=== PATIENT | female | born 1940 | race Caucasian/White ===

== ENCOUNTER 2016-10-29 10:26 | Inpatient (IN) | payer MEDICARE ==
--- NOTE | 2016-10-26 21:27 | HP ---
HISTORY AND PHYSICAL: DATE OF VISIT: 10/26/16 DATE OF SURGERY: 10/29/16 SURGEON: Rubina France MD PROCEDURE: Right total knee arthroplasty. CHIEF COMPLAINT: Right knee pain. HISTORY OF PRESENT ILLNESS: Ms. Childs is a 76-year-old female with complaints of right knee pain secondary to advanced osteoarthritis. She has failed conservative management and has elected to proceed with the right total knee arthroplasty, which is scheduled for 10/29/[address] France. PAST MEDICAL HISTORY: Hypothyroidism and osteoarthritis. PAST SURGICAL HISTORY: Tubal ligation, appendectomy, hernia repair, right ankle ORIF, and right knee arthroscopy. CURRENT MEDICATIONS: 1. Triamterene/hydrochlorothiazide. 2. Levothyroxine. 3. Raloxifene. ALLERGIES: No known drug allergies. FAMILY HISTORY: Colon cancer. SOCIAL HISTORY: She is a 76-year-old female. She lives alone. She does not smoke or use drugs. She uses occasional alcohol. REVIEW OF SYSTEMS: A complete 14-point review of systems was reviewed with the patient. All is negative. PHYSICAL EXAMINATION GENERAL: She is well-developed, well-nourished. She is in no acute distress. VITAL SIGNS: She stands 5 feet 2 inches tall, weighs 148 pounds. Her blood pressure 140/90. Her heart rate is 85. HEENT: Normocephalic, atraumatic. NECK: Supple. No palpable lymph nodes. Trachea is midline. PULMONARY: Lungs are clear to auscultation bilaterally. CARDIO: Regular rate and rhythm. Strong S1 and S2. ABDOMEN: Soft, nontender, and nondistended. MUSCULOSKELETAL: Right lower extremity, the skin is intact. She has tenderness over the medial and lateral joint line. Her lower extremity muscle group strengths are intact at 5/5. She has 2+ dorsalis pedis pulses, but she walks with a slightly antalgic type gait favoring the right leg. NEUROLOGICAL: She is alert and oriented x3. ASSESSMENT AND PLAN: Ms. Childs is a 76-year-old female with complaints of right knee pain secondary to advanced osteoarthritis. She has failed conservative management and has elected to proceed with the right total knee arthroplasty. The surgery is scheduled for 10/29/[address] France discussed the risks and benefits of the surgery at today's visit and all of her questions were answered. Percocet, Colace, and Coumadin were sent to her pharmacy today for postoperative pain control and DVT prophylaxis. She will see Dr. France in 10 to 14 days after the surgery. JUDD KARIMI [id number]/[facility] #: [id number] MTDEnid
[~2016-10-29 10:26] MED LIST: Buffered Lidocaine 1% SYRIN* 3 ML/SYR SYRINGE INTRADERM ONE; Bupivacaine 0.5% SDV PF* 30 ML VIAL ONE; Dexamethasone IV* 4 MG/ML 1 ML (4 MG) IV SLOW PU ONE; Dexmedetomidine* 200 MCG/2 ML 2 ML VIAL ONE; Famotidine IV* 10 MG/ML 2 ML (20 mg) IV ONE; HYDROmorphone* 1 MG/ML 1 ML SYR ONE; Midazolam* 1 MG/ML 2 ML VIAL (2 MG) ONE; Morphine PF AMP (0.5MG/ML)* 5 MG/10 ML AMP ONE; Propofol* 10 MG/ML 20 ML BTL IV PUSH ONE; fentaNYL* 50 MCG/ML 2 ML VIAL (100 MCG VIAL) ONE
[2016-10-29] MEDS ORDERED: Dexamethasone IV* 4 MG/ML 1 ML (4 MG) ONE (10:44)
[2016-10-29] MEDS ORDERED: Famotidine IV* 10 MG/ML 2 ML (20 mg) ONE (10:44)
[2016-10-29] MEDS ORDERED: ceFAZolin 2 GM PREMIX(*) 2 GM/50 ML BAG IVPB ONE (10:44)
[2016-10-29] MEDS ORDERED: Meperidine SYRINGE* 50 MG/ML ONE (11:30)
[2016-10-29] MEDS ORDERED: fentaNYL* 50 MCG/ML 2 ML VIAL (100 MCG VIAL) ONE ×3 (11:40→15:45)
[2016-10-29] MEDS ORDERED: HYDROmorphone* 1 MG/ML 1 ML SYR ONE ×3 (14:02→15:44)
[2016-10-29] MEDS ORDERED: diPHENhydraMINE IV* 50 MG/ML 1 ml VIAL (BENADRYL) IV PRN ×2 (16:03→16:04)
[2016-10-29] MEDS ORDERED: Acetaminophen TAB* 325 MG PO PRN (16:03)
[2016-10-29] MEDS ORDERED: PROCHLORPERAZINE INJ 5 MG/ML 2 ML VIAL IV PRN ×2 (16:04)
[2016-10-29] MEDS ORDERED: Ondansetron INJ* 2 MG/ML VIAL IV PRN ×2 (16:04)
[2016-10-29] MEDS ORDERED: oxyCODONE/Acetamin 5/325 MG* TAB PO PRN (16:04)
[2016-10-29] MEDS ORDERED: DiMENhydriNATE IV* 50 MG/ML VIAL IV PUSH PRN ×2 (16:04)
[2016-10-29] MEDS ORDERED: HYDROmorphone* 1 MG/ML 1 ML SYR IV PRN (16:04)
[2016-10-29] MEDS ORDERED: fentaNYL* 50 MCG/ML 2 ML VIAL (100 MCG VIAL) IV PRN (16:04)
[2016-10-29] MEDS ORDERED: Naloxone* 0.4 MG/ML 1 ML VIAL IV PRN (16:04)
[2016-10-29] MEDS ORDERED: Nalbuphine* 20 MG/ML 1 ML VIAL IV PRN (16:04)
[2016-10-29] MEDS ORDERED: Ondansetron INJ* 2 MG/ML VIAL ONE (16:29)
[2016-10-29] MEDS ORDERED: DiMENhydriNATE IV* 50 MG/ML VIAL ONE (16:30)
[2016-10-29] MEDS ORDERED: PROCHLORPERAZINE INJ 5 MG/ML 2 ML VIAL ONE (16:58)
[2016-10-29] MEDS ORDERED: Bisacodyl SUPP* 10 MG SUPP PR PRN (17:33)
[2016-10-29] MEDS ORDERED: Polyethylene Glycol 3350* 17 GM PACKET PO PRN (17:35)
[2016-10-29] MEDS ORDERED: Warfarin TAB(*) 6 MG PO ONE (18:00)
--- NOTE | 2016-10-29 18:09 | RAD ---
INDICATION: Status post right knee arthroplasty. COMPARISON: Preoperative x-ray dated October 02, 2016 TECHNIQUE: 2 view radiograph of the right knee. FINDINGS: There is been interval placement of a right knee prosthesis in anatomic alignment. Expected postoperative findings are noted. IMPRESSION: Anatomic alignment of recently placed right knee prosthesis.
--- NOTE | 2016-10-29 20:40 | CONS ---
HOSPITAL MEDICINE CONSULTATION REPORT: DATE OF CONSULT: 10/29/16 ATTENDING PHYSICIAN: Dr. Rubina France. CONSULTING PHYSICIAN: Dr. Rima Valenzuela (dictation provided by Lucy Dotson NP) . REASON FOR CONSULT: Medical co-management in a patient admitted for right total knee arthroplasty. HISTORY OF PRESENT ILLNESS: Ms. Childs is a 76-year-old female with a past medical history of hypothyroidism, hypertension, and osteoarthritis, who presented to the hospital today for an elective right total knee arthroplasty. Please see the dictated H and P from Dr. France for completed details. In brief , the patient had ongoing pain to the right knee and failed conservative measures and opted for surgical intervention today. Ms. Childs states that she was feeling in her normal state of health prior to coming in for surgery. She has had no complaints. She says her blood pressure is well controlled on her current regimen. She has had no recent illnesses. PAST MEDICAL HISTORY: 1. Hypertension. 2. Hypothyroidism. 3. Osteoarthritis. PAST SURGICAL HISTORY: 1. Tubal ligation. 2. Appendectomy. 3. Hernia repair. 4. Right ankle ORIF. 5. Right knee arthroscopy. MEDICATIONS: 1. AREDS 2 cap p.o. daily. 2. Biotin 1 cap p.o. daily. 3. Calcium carbonate with cholecalciferol 1 tab p.o. daily. 4. Evista 60 mg p.o. q.a.m. 5. Folic acid 1 mg p.o. q.a.m. 6. Multivitamin with mineral 1 tab p.o. q.a.m. 7. Naproxen 500 mg p.o. b.i.d. 8. Turmeric 1 tab p.o. q.a.m. 9. Tramadol 50 mg p.o. q.6 hours p.r.n. 10. Synthroid 50 mcg p.o. q.a.m. 11. Triamterene/hydrochlorothiazide 37.5/25 one cap p.o. daily. ALLERGIES: No known drug allergies. FAMILY HISTORY: The patient reports her mother and father both related to colon cancer. SOCIAL HISTORY: No report of tobacco or drug use. The patient does drink occasionally, but she states never to excess. She reports that her daughter would be her healthcare proxy; daughter's name is Jessica. REVIEW OF SYSTEMS: A 14-point review of systems completed with Ms. Childs and all those not mentioned above were negative. PHYSICAL EXAM: Vital Signs: Temperature 96.6, pulse rate 82, respiratory rate 16, O2 saturation 95% on 3 L nasal cannula, blood pressure 101/59. General: Ms. Childs is sitting in the bed. She is in no acute distress. Neuro: She is alert, she is oriented x3. She moves all extremities equally. There is no facial asymmetry or focal weakness. Extra-ocular movements are intact. Heart: S1, S2. No murmur, rub, or gallop, and regular. Lungs are clear to auscultation bilaterally with no accessory muscle use and good aeration. The abdomen is soft, nontender with bowel sounds positive x4. Extremities: No cyanosis or edema. Skin is intact. LABORATORY DATA: On 10/26/16, WBC is 7.6, hemoglobin 13.8, hematocrit 41, platelet count 190. Sodium 139, potassium 3.8, chloride 100, serum bicarbonate 30, BUN 23, creatinine 1.03, glucose 98. ASSESSMENT AND PLAN: Ms. Childs is a 76-year-old female with a past medical history of hypertension and hypothyroidism, who presents to the hospital today with plans for an elective right total knee arthroplasty. The recommendations are as follows: 1. Postop day #0 status post right total knee arthroplasty: Management will be per for orthopedic services. The patient will have pain medications p.r.n. with the bowel regimen. She will have physical and occupational therapy. We will monitor her H and H closely. 2. Hypertension. Plan to hold triamterene/hydrochlorothiazide in the immediate perioperative period. The patient's blood pressure is 101/59. We can reevaluate in the a.m. and resume that as indicated. 3. Hypothyroidism. Continue levothyroxine. 4. DVT prophylaxis. With enoxaparin and warfarin per Ortho. 5. Code status is full code. 6. Disposition per Ortho. TIME SPENT: Approximately 60 minutes was spent in the admission of this patient , more than half the time was spent with the patient at bedside reviewing the events leading up to this hospitalization, performing the physical examination, and reviewing my plan [place] [id number]/[facility] #: [id number] ADAL
[2016-10-29] MEDS: Docusate CAP* 100 MG PO SCH (22:08)
[2016-10-29] MEDS: ceFAZolin 1 GM in Dextrose (*) 1 GM/50 ML BAG IVPB SCH (22:11)
[2016-10-30] MEDS ORDERED: Morphine INJ* 2 MG/ML 1 ML SYRINGE IV PRN (05:35)
[2016-10-30] MEDS ORDERED: oxyCODONE TAB* 5 MG TAB PO PRN (05:35)
[2016-10-30] MEDS: oxyCODONE/Acetamin 5/325 MG* TAB PO PRN ×3 (05:52→20:53)
[2016-10-30] MEDS: Levothyroxine TAB* 50 MCG TAB PO SCH (05:52)
[2016-10-30] MEDS: ceFAZolin 1 GM in Dextrose (*) 1 GM/50 ML BAG IVPB SCH ×2 (05:53→14:23)
[2016-10-30 06:59] LABS: Hematocrit 33 % (35-47); Hemoglobin 10.9 g/dl (12.0-16.0)
[2016-10-30 07:11] LABS: BUN/Creatinine Ratio 20.2 (8-20); Calcium 8.8 mg/dL (8.6-10.3); EGFR African American 79.1 (>60); EGFR Non-African American 61.5 (>60); Potassium 4.2 mmol/L (3.5-5.0)
[2016-10-30] MEDS: Docusate CAP* 100 MG PO SCH ×2 (08:37→20:54)
[2016-10-30] MEDS ORDERED: HYDROmorphone* 1 MG/ML 1 ML SYR ONE (08:47)
[2016-10-30] MEDS ORDERED: Meperidine SYRINGE* 50 MG/ML ONE (08:47)
[2016-10-30] MEDS ORDERED: fentaNYL* 50 MCG/ML 2 ML VIAL (100 MCG VIAL) ONE (08:47)
[2016-10-30] MEDS ORDERED: Triamterene/HCTZ 37.5-25 MG* CAP PO SCH (09:00)
--- NOTE | 2016-10-30 09:07 | OP ---
DATE OF OPERATION: 10/29/16 - ROOM #333 DATE OF : 38 SURGEON: Rubina France MD DIGITAL ASSET COORDINATOR: JUDD Umanzor. This commercial escrow assistant was present throughout the entire procedure and did help with prepping, draping, manipulation of the leg, retraction, wound closure, and all portions of the procedure. ANESTHESIOLOGIST: Gael Hammond MD ANESTHESIA: Spinal with adductor nerve block. PRE-OP DIAGNOSIS: Severe end-stage degenerative osteoarthritis of the right knee joint with valgus deformity. POST-OP DIAGNOSES: 1. Severe end-stage degenerative osteoarthritis of the right knee joint with valgus deformity. 2. Severe osteopenia. OPERATIVE PROCEDURE: Right total knee arthroplasty. COMPLICATIONS: None. ESTIMATED BLOOD LOSS: 200 cc. SPECIMEN: Bone and cartilage from the right knee joint, sent to pathology. TOURNIQUET TIME: 56 minutes. HARDWARE USED: This is a cemented [employer] total knee hardware. Two packages of Simplex bone and cement. For the femur, a size 5 right narrow Legion femoral component. For the tibia, a size 3 Gayle II right tibial base plate. For the insert, a 9 mm constrained articular insert size 3-4. For the patella, a 29 mm 7.5 thickness 3-peg all-poly patella. BRIEF HISTORY/INDICATIONS: Ms. Childs is a 76-year-old female with years of increasingly severe right knee pain and valgus deformity. She failed conservative treatment with the antiinflammatories, pain medications, intraarticular injections, and physical therapy. Radiographs showed bone-on- bone contact and severe arthritis. She did have a 12-degree valgus deformity at the knee. Due to continued pain and decreased quality of life, she elected to undergo right total knee arthroplasty. Informed consent was obtained from the patient. She understood the risk of the surgery included, but were not limited to bleeding, infection, damage to nearby structures, continued pain, need for further surgery, intraoperative fracture, nerve palsy, hardware failure or loosening, knee stiffness, loss of motion, stroke, heart attack, blood clot, and . She wished to proceed. 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 She had complete loss of cartilage in the lateral patellofemoral compartments. She did have preop 12-degree valgus deformity corrected to anatomic 3-5 degrees by the end of the case. Throughout the procedure, she was noted to have extreme osteopenia. DESCRIPTION OF PROCEDURE: Ms. Childs was identified in the preanesthesia unit. The right lower extremity was marked as the correct operative side. Informed consent was signed and placed in the chart. The patient was taken to the operating room and placed under spinal anesthesia with an adductor nerve block. A Figueroa catheter was placed. The tourniquet was placed on the right thigh. Right lower extremity was prepped and draped in the usual sterile fashion. A preop time-out was made to correctly identify the patient's side and site. Appropriate perioperative antibiotics were given within 1 hour of incision. Tourniquet was inflated until the tourniquet time for his procedure was 56 minutes. A 12 cm midline incision was made with a 10-blade and carried down to the extensor mechanism. Next a new 10 blade was used to make a standard medial peripatellar arthrotomy. The patella was subluxed laterally. Electrocautery was used to subperiosteally elevate soft tissue off the superomedial tibia to the mid sagittal plane. The knee was flexed up. Anterior horn of the lateral meniscus and ACL was sharply released. A drill was used to enter the distal femur. Intramedullary distal femoral cutting guide was pinned on the distal femur. Lateral femoral condylar hypoplasia was noted and accounted for. An oscillating saw was used to make distal femoral cuts. External rotation guide was pinned on the distal femur. The distal femur was sized to a size 5. Size 5 multi-cutting jig was pinned on the distal femur. The oscillating saw to used to make the appropriate 4 chamfer cuts. The PCL was completely released and the tibia was subluxed anteriorly. Extramedullary tibial cutting guide was pinned on the proximal tibial. Oscillating saw was used to make the proximal tibial cut perpendicular to the mechanical axis of the tibia. The bone was carefully removed. Extreme osteopenia was noted throughout the case. The knee was brought out into full extension. A spacer block was tied laterally. A 15-blade was used to perform pie-crusting laterally. Medial and lateral ligamentous balancing was improved. Flexion and extension gaps were well balanced. The knee was flexed up. The lamina automatic coin machine mechanic was placed both medially and laterally. Any remaining meniscus was carefully removed with electrocautery. Any posterior osteophytes were removed with curette. Tibial tray and drop jose were placed to once again confirm satisfactory proximal tibial cut. This was confirmed. A size 5 right narrow femoral trial was impacted on to the distal femur and had good fit. The box for the posterior stabilized implant was prepared using a reamer and box cut osteotome. Next, a size 3 tibial tray trial with a 9 mm insert trial was placed and the knee was taken through range of motion. The knee was in full extension to 125 degrees of flexion. Good patellofemoral tracking. The patella was everted. A 7 mm of patellar bone and cartilage was carefully removed with an oscillating saw. The patella was sized to a size 29. The 3 peg holes were drilled through a size 29 guide. A 7.5 thickness size 29 trial patella was placed and the knee was taken through a range of motion. There was satisfactory patellofemoral tracking. All trials were carefully removed. The tibia was subluxed anteriorly and sized to a size 3. Proximal tibia was prepared using a size 3 keel punch. All bony cut surfaces were copiously irrigated with sterile saline and dried. The final implants were cemented into place starting with the tibia followed by the femur and last the patella. A 9 mm insert trial was placed and the knee was brought out into full extension. Tourniquet was turned down at 56 minutes. The knee was copiously irrigated. Once the cement was fully cured, the insert trial was removed. Any excess cement was carefully removed from around the implants. Electrocautery was used to obtain meticulous hemostasis. Final insert chosen was a 9 mm constrained articular insert size 3-4. This was locked into place on the tibial tray without difficulty. Stability of the insert was checked and rechecked and noted to be stable. The knee was once again copiously irrigated with sterile saline. The extensor mechanism was closed over a medium Hemovac drain using interrupted #1 Vicryl's. The rest of the incision was closed in a layered fashion using 0 and 2-0 Vicryl' s. Skin was closed using running 3-0 nylon suture. Sterile Xeroform, 4x4's, and Webril were used to cover the incision. Julius wrap and cold packs were placed over this. The patient's anesthesia was reversed without difficulty. She was taken to the PACU in stable condition. Intended weightbearing will be weightbearing as tolerated. Intended DVT prophylaxis will be Coumadin with a Lovenox bridge. [id number]/[facility] #: [id number] [facility] CENTEREnid
[2016-10-30] MEDS: Ondansetron TAB* 4 MG PO PRN ×2 (09:12→20:54)
--- NOTE | 2016-10-30 11:50 | PN ---
Subjective Date of Service: 10/30/16 Interval History: Ms. Childs is sitting in the chair and reports feeling well. She reports good pain control but did report some nausea this morning. Denies CP, SOB, abd pain. No other acute concerns. Family History: Unchanged from Admission Social History: Unchanged from Admission Past Medical History: Unchanged from Admission Objective Active Medications: Acetaminophen (Tylenol Tab*) 650 mg PO Q4H PRN PRN Reason: PAIN OR TEMPERATURE Bisacodyl (Dulcolax Supp*) 10 mg TN DAILY PRN PRN Reason: constipation Docusate Sodium (Colace Cap*) 100 mg PO BID [facility] Last Admin: 10/30/16 08:37 Dose: 100 mg Enoxaparin Sodium (Lovenox(*)) 30 mg SUBCUT Q24H [facility] Cefazolin Sodium/Dextrose (Kefzol 1 Gm In Dextrose Duplex (*)) 1 gm in 50 mls @ 200 mls/hr IVPB Q8HR [facility] Stop: 10/30/16 14:14 Last Admin: 10/30/16 05:53 Dose: 200 mls/hr Lactated Ringer's (Lactated Ringers 1000 Ml Bag*) 1,000 mls @ 100 mls/hr IV PER RATE [facility] Last Admin: 10/30/16 04:37 Dose: 100 mls/hr Lactulose (Lactulose*) 30 ml PO Q6H PRN PRN Reason: constipation Levothyroxine Sodium (Synthroid Tab*) 50 mcg PO 0600 [facility] Last Admin: 10/30/16 05:52 Dose: 50 mcg Magnesium Hydroxide (Milk Of Magnesia Liq*) 30 ml PO Q6H PRN PRN Reason: constipation Morphine Sulfate (Morphine Inj (Syringe)*) 2 mg IV Q2H PRN PRN Reason: PAIN Ondansetron HCl (Zofran Tab*) 4 mg PO Q6H PRN PRN Reason: NAUSEA Last Admin: 10/30/16 09:12 Dose: 4 mg Oxycodone HCl (Roxycodone Tab*) 10 mg PO Q4H PRN PRN Reason: SEVERE PAIN Oxycodone/Acetaminophen (Percocet 5/325 Tab*) 1 tab PO Q3H PRN PRN Reason: PAIN - MODERATE Oxycodone/Acetaminophen (Percocet 5/325 Tab*) 2 tab PO Q3H PRN PRN Reason: PAIN - MODERATE Last Admin: 10/30/16 05:52 Dose: 1 tab Pharmacy Profile Note (Coumadin Daily Reminder*) 1 note FOLLOW UP 1700 AGUSTINA Polyethylene Glycol/Electrolytes (Miralax*) 17 gm PO DAILY PRN PRN Reason: Constipation Vital Signs 10/29/16 10/29/16 10/29/16 16:03 16:05 16:10 Temperature 96.8 F Pulse Rate 87 100 106 Respiratory 12 20 20 Rate Blood Pressure 112/65 120/69 107/59 (mmHg) O2 Sat by Pulse 96 95 96 Oximetry 10/29/16 10/29/16 10/29/16 16:15 16:20 16:30 Temperature Pulse Rate 92 91 86 Respiratory 17 18 16 Rate Blood Pressure 132/78 142/76 132/98 (mmHg) O2 Sat by Pulse 96 96 95 Oximetry 10/29/16 10/29/16 10/29/16 16:45 16:58 17:25 Temperature 96.8 F 96.6 F Pulse Rate 82 87 82 Respiratory 17 11 16 Rate Blood Pressure 130/69 145/73 101/59 (mmHg) O2 Sat by Pulse 97 96 95 Oximetry 10/29/16 10/29/16 10/29/16 17:52 18:30 19:00 Temperature 95.2 F Pulse Rate 77 Respiratory 16 14 16 Rate Blood Pressure 94/59 (mmHg) O2 Sat by Pulse 97 Oximetry 10/29/16 10/29/16 10/29/16 20:05 20:15 20:25 Temperature 97.3 F Pulse Rate 76 Respiratory 16 16 Rate Blood Pressure 85/54 100/60 (mmHg) O2 Sat by Pulse 96 Oximetry 10/29/16 10/29/16 10/29/16 20:46 22:33 23:04 Temperature 97.3 F 97.3 F Pulse Rate 72 74 Respiratory 16 16 16 Rate Blood Pressure 87/55 86/50 (mmHg) O2 Sat by Pulse 97 96 Oximetry 10/29/16 10/30/16 10/30/16 23:15 00:00 00:04 Temperature Pulse Rate Respiratory 16 16 Rate Blood Pressure 80/60 (mmHg) O2 Sat by Pulse Oximetry 10/30/16 10/30/16 10/30/16 01:00 01:04 02:04 Temperature Pulse Rate Respiratory 16 16 16 Rate Blood Pressure (mmHg) O2 Sat by Pulse Oximetry 10/30/16 10/30/16 10/30/16 02:48 03:04 04:04 Temperature 97.5 F Pulse Rate 76 Respiratory 16 16 16 Rate Blood Pressure 99/62 (mmHg) O2 Sat by Pulse 97 Oximetry 10/30/16 10/30/16 10/30/16 05:04 05:52 07:34 Temperature 97.5 F Pulse Rate 81 Respiratory 16 16 15 Rate Blood Pressure 103/62 (mmHg) O2 Sat by Pulse 93 Oximetry 10/30/16 10/30/16 07:52 08:00 Temperature Pulse Rate Respiratory 18 18 Rate Blood Pressure (mmHg) O2 Sat by Pulse 93 Oximetry Oxygen Devices in Use Now: None Appearance: Well appearing female patient, OOB to chair, in NAD Eyes: PERRLA Ears/Nose/Mouth/Throat: Mucous Membranes Moist Neck: NL Appearance and Movements; NL JVP Respiratory: Symmetrical Chest Expansion and Respiratory Effort, Clear to Auscultation Cardiovascular: NL Sounds; No Murmurs; No JVD, RRR Abdominal: NL Sounds; No Tenderness; No Distention Extremities: - - Right knee dressing c/d/i, nvi distally Skin: No Rash or Ulcers Neurological: Alert and Oriented x 3 Lines/Tubes/Other Access: Clean, Dry and Intact Peripheral IV Nutrition: Taking PO's Result Diagrams: 10/30/16 05:56 10/30/16 05:56 Assess/Plan/Problems-Billing Assessment: Ms. Childs is a 76 yo female with a PMH of HTN and hypothyroidism who was admitted on 10/29/16 electively for a right total knee arthroplasty. - Patient Problems (1) Status post total right knee replacement Code(s): Z96.651 - PRESENCE OF RIGHT ARTIFICIAL KNEE JOINT Comment: POD #1, management per ortho Pain management PT/OT (2) HTN (hypertension) Code(s): I10 - ESSENTIAL (PRIMARY) HYPERTENSION Comment: Normotensive to mildly hypotensive Hold home medications for now, re-evaluate tomorrow (3) Hypothyroidism Code(s): E03.9 - HYPOTHYROIDISM, UNSPECIFIED Comment: Continue home levothyroxine. (4) DVT prophylaxis Code(s): BNR0725 - Comment: Per ortho SQ Lovenox Status and Disposition: Inpatient admission. Dispo per ortho. Hospitalist co-medical management.
[2016-10-30] MEDS: traMADol TAB* 50 MG PO PRN (12:56)
[2016-10-30] MEDS ORDERED: Enoxaparin(*) 30 MG/0.3 ML SYR SUBCUT SCH (15:00)
--- NOTE | 2016-10-30 15:39 | PN ---
Progress Note - Progress Note SOAP: Subjective: Pt is doing well. She had some nausea from the percocet. Her pain is well controlled. She denies CP, SOB, N/T, F/C or calf pain. VSS Objective: PE- 76 y/o F NAD, sitting comfortably in chair RLE- dressing c/d/i, +PF/DF of ankle, calf soft NT, NVI Vital Signs Temp Pulse Resp BP Pulse Ox 97.3 F 82 18 109/65 96 10/30/16 11:15 10/30/16 11:15 10/30/16 14:56 10/30/16 11:15 10/30/16 11:15 Laboratory Results - last 24 hr 10/30/16 10/30/16 10/30/16 05:56 05:56 05:56 Hgb 10.9 L Hct 33 L INR (Anticoag Therapy) 0.91 Sodium 136 Potassium 4.2 Chloride 105 Carbon Dioxide 27 Anion Gap 4 BUN 18 Creatinine 0.89 Est GFR ( Amer) 79.1 Est GFR (Non-Af Amer) 61.5 BUN/Creatinine Ratio 20.2 H Glucose 131 H Calcium 8.8 Assessment: POD 1 s/p R TKA Plan: WBAT R TKA- cont PT/OT Added order for tramadol due to nausea from percocet Coumadin 8 mg tonight Appreciate hospitalist consult Possible DC tomorrow to SNF vs prison
[2016-10-30] MEDS ORDERED: Warfarin TAB(*) 4 MG PO ONE (17:00)
[2016-10-31] MEDS: Levothyroxine TAB* 50 MCG TAB PO SCH (05:01)
[2016-10-31] MEDS: traMADol TAB* 50 MG PO PRN ×3 (05:01→21:19)
[2016-10-31 06:19] LABS: Hematocrit 29 % (35-47); Hemoglobin 9.6 g/dl (12.0-16.0)
[2016-10-31] MEDS: oxyCODONE/Acetamin 5/325 MG* TAB PO PRN (07:29)
[2016-10-31] MEDS: Docusate CAP* 100 MG PO SCH ×2 (08:19→21:18)
[2016-10-31] MEDS: Magnesium Hydroxide LIQ* 30 ML UDC PO PRN ×2 (08:19→21:19)
--- NOTE | 2016-10-31 09:09 | PN ---
Progress Note - Progress Note SOAP: Subjective: Pt. reports doing well. She lives alone and would like to go to a SNF. Objective: RLE - dressing changed, inc c/d/i. min swelling. distally nvi. Vital Signs: Temp Pulse Resp BP Pulse Ox 98.0 F 84 16 131/64 95 10/31/16 07:14 10/31/16 07:14 10/31/16 08:00 10/31/16 07:14 10/31/16 08:00 Laboratory Results - last 24 hr 10/31/16 10/31/16 05:46 05:46 Hgb 9.6 L Hct 29 L INR (Anticoag Therapy) 1.87 H Assessment: 76 yo F pod 2 s/p RTKA Plan: d/c lovenox 4 mg coumadin tonight prn analgesia d/c plan - snf rehab
[2016-10-31] MEDS: Ondansetron TAB* 4 MG PO PRN (09:31)
--- NOTE | 2016-10-31 13:37 | PN ---
Subjective Date of Service: 10/31/16 Interval History: Patient OOB to chair and states she is "better than yesterday." Reports adequate pain control with prescribed medications. Denies CP, SOB, abd pain, n/ v. She reports that she would like to go to a rehab prior to going home since she lives by herself. Family History: Unchanged from Admission Social History: Unchanged from Admission Past Medical History: Unchanged from Admission Objective Active Medications: Acetaminophen (Tylenol Tab*) 650 mg PO Q4H PRN PRN Reason: PAIN OR TEMPERATURE Last Admin: 10/31/16 06:09 Dose: 650 mg Bisacodyl (Dulcolax Supp*) 10 mg NM DAILY PRN PRN Reason: constipation Docusate Sodium (Colace Cap*) 100 mg PO BID [facility] Last Admin: 10/31/16 08:19 Dose: 100 mg Lactated Ringer's (Lactated Ringers 1000 Ml Bag*) 1,000 mls @ 100 mls/hr IV PER RATE [facility] Last Admin: 10/30/16 04:37 Dose: 100 mls/hr Lactulose (Lactulose*) 30 ml PO Q6H PRN PRN Reason: constipation Levothyroxine Sodium (Synthroid Tab*) 50 mcg PO 0600 [facility] Last Admin: 10/31/16 05:01 Dose: 50 mcg Magnesium Hydroxide (Milk Of Magnesia Liq*) 30 ml PO Q6H PRN PRN Reason: constipation Last Admin: 10/31/16 08:19 Dose: 30 ml Morphine Sulfate (Morphine Inj (Syringe)*) 2 mg IV Q2H PRN PRN Reason: PAIN Ondansetron HCl (Zofran Tab*) 4 mg PO Q6H PRN PRN Reason: NAUSEA Last Admin: 10/31/16 09:31 Dose: 4 mg Oxycodone HCl (Roxycodone Tab*) 10 mg PO Q4H PRN PRN Reason: SEVERE PAIN Oxycodone/Acetaminophen (Percocet 5/325 Tab*) 1 tab PO Q3H PRN PRN Reason: PAIN - MODERATE Last Admin: 10/31/16 07:29 Dose: 1 tab Oxycodone/Acetaminophen (Percocet 5/325 Tab*) 2 tab PO Q3H PRN PRN Reason: PAIN - MODERATE Last Admin: 10/30/16 20:53 Dose: 2 tab Pharmacy Profile Note (Coumadin Daily Reminder*) 1 note FOLLOW UP 1700 [facility] Last Admin: 10/30/16 16:51 Dose: 1 note Polyethylene Glycol/Electrolytes (Miralax*) 17 gm PO DAILY PRN PRN Reason: Constipation Tramadol HCl (Ultram*) 50 mg PO Q6H PRN PRN Reason: PAIN - MILD TO MODERATE Last Admin: 10/31/16 12:50 Dose: 50 mg Warfarin Sodium (Coumadin Tab(*)) 4 mg PO ONCE@1700 ONE PRN Reason: Protocol Stop: 10/31/16 17:01 Vital Signs 10/30/16 10/30/16 10/30/16 14:56 15:24 16:00 Temperature 97.8 F Pulse Rate 96 Respiratory 18 16 Rate Blood Pressure 119/70 (mmHg) O2 Sat by Pulse 92 92 Oximetry 10/30/16 10/30/16 10/30/16 16:50 18:50 19:45 Temperature 98.3 F Pulse Rate 90 Respiratory 16 16 18 Rate Blood Pressure 120/68 (mmHg) O2 Sat by Pulse 95 Oximetry 10/30/16 10/30/16 10/30/16 20:50 20:53 22:53 Temperature Pulse Rate Respiratory 16 16 16 Rate Blood Pressure (mmHg) O2 Sat by Pulse Oximetry 10/30/16 10/30/16 10/31/16 23:16 23:33 00:00 Temperature 98.5 F Pulse Rate 91 92 Respiratory 16 Rate Blood Pressure 109/55 (mmHg) O2 Sat by Pulse 86 96 96 Oximetry 10/31/16 10/31/16 10/31/16 01:28 03:15 05:01 Temperature 98.1 F Pulse Rate 90 86 Respiratory 16 16 Rate Blood Pressure 119/64 (mmHg) O2 Sat by Pulse 94 94 Oximetry 10/31/16 10/31/16 10/31/16 07:01 07:14 07:29 Temperature 98.0 F Pulse Rate 84 Respiratory 18 16 16 Rate Blood Pressure 131/64 (mmHg) O2 Sat by Pulse 95 Oximetry 10/31/16 10/31/16 10/31/16 08:00 09:29 11:22 Temperature 97.6 F Pulse Rate 86 Respiratory 16 18 15 Rate Blood Pressure 127/63 (mmHg) O2 Sat by Pulse 95 94 Oximetry 10/31/16 12:50 Temperature Pulse Rate Respiratory 18 Rate Blood Pressure (mmHg) O2 Sat by Pulse Oximetry Oxygen Devices in Use Now: None Appearance: Well appearing female, OOB to chair, NAD Eyes: PERRLA Ears/Nose/Mouth/Throat: Mucous Membranes Moist Neck: NL Appearance and Movements; NL JVP Respiratory: Symmetrical Chest Expansion and Respiratory Effort, Clear to Auscultation Cardiovascular: NL Sounds; No Murmurs; No JVD, RRR Abdominal: NL Sounds; No Tenderness; No Distention Extremities: No Edema, - - NVI, right knee dressing c/d/i Skin: No Rash or Ulcers Neurological: Alert and Oriented x 3, NL Muscle Strength and Tone Lines/Tubes/Other Access: Clean, Dry and Intact Peripheral IV Nutrition: Taking PO's Result Diagrams: 10/31/16 05:46 10/30/16 05:56 Assess/Plan/Problems-Billing Assessment: Ms. Childs is a 76 yo female with a PMH of HTN and hypothyroidism who was admitted on 10/29/16 electively for a right total knee arthroplasty. - Patient Problems (1) Status post total right knee replacement Code(s): Z96.651 - PRESENCE OF RIGHT ARTIFICIAL KNEE JOINT Comment: POD #2, management per ortho Pain management PT/OT (2) HTN (hypertension) Code(s): I10 - ESSENTIAL (PRIMARY) HYPERTENSION Comment: Normotensive Continue to hold home medications (3) Hypothyroidism Code(s): E03.9 - HYPOTHYROIDISM, UNSPECIFIED Comment: Continue home levothyroxine. (4) DVT prophylaxis Code(s): TZR1158 - Comment: Per ortho SQ Lovenox Status and Disposition: Inpatient admission. Dispo per ortho. Hospitalist co-medical management. Patient requesting [facility].
[2016-10-31] MEDS ORDERED: Warfarin TAB(*) 4 MG PO ONE (17:00)
[2016-10-31] MEDS: LACTULOSE* 30 ML UDC PO PRN (17:26)
[2016-11-01] MEDS: Levothyroxine TAB* 50 MCG TAB PO SCH (05:38)
[2016-11-01 06:04] LABS: Hematocrit 29 % (35-47); Hemoglobin 9.6 g/dl (12.0-16.0)
[2016-11-01] MEDS: traMADol TAB* 50 MG PO PRN ×2 (07:55→17:54)
[2016-11-01] MEDS: Docusate CAP* 100 MG PO SCH ×2 (07:56→20:20)
[2016-11-01] MEDS: LACTULOSE* 30 ML UDC PO PRN (07:56)
--- NOTE | 2016-11-01 09:43 | PN ---
Subjective Date of Service: 11/01/16 Interval History: No acute complaints, denies fever/chills, CP, SOB, n/v. Reports adequate pain control with current regimen. Reports being OOB to chair earlier this morning and now resting in bed. Reports that she has not yet had a BM. Family History: Unchanged from Admission Social History: Unchanged from Admission Past Medical History: Unchanged from Admission Objective Active Medications: Acetaminophen (Tylenol Tab*) 650 mg PO Q4H PRN PRN Reason: PAIN OR TEMPERATURE Last Admin: 10/31/16 06:09 Dose: 650 mg Bisacodyl (Dulcolax Supp*) 10 mg GA DAILY PRN PRN Reason: constipation Docusate Sodium (Colace Cap*) 100 mg PO BID [facility] Last Admin: 11/01/16 07:56 Dose: 100 mg Lactated Ringer's (Lactated Ringers 1000 Ml Bag*) 1,000 mls @ 100 mls/hr IV PER RATE [facility] Last Admin: 10/30/16 04:37 Dose: 100 mls/hr Lactulose (Lactulose*) 30 ml PO Q6H PRN PRN Reason: constipation Last Admin: 11/01/16 07:56 Dose: 30 ml Levothyroxine Sodium (Synthroid Tab*) 50 mcg PO 0600 [facility] Last Admin: 11/01/16 05:38 Dose: 50 mcg Magnesium Hydroxide (Milk Of Magnesia Liq*) 30 ml PO Q6H PRN PRN Reason: constipation Last Admin: 10/31/16 21:19 Dose: 30 ml Morphine Sulfate (Morphine Inj (Syringe)*) 2 mg IV Q2H PRN PRN Reason: PAIN Ondansetron HCl (Zofran Tab*) 4 mg PO Q6H PRN PRN Reason: NAUSEA Last Admin: 10/31/16 09:31 Dose: 4 mg Oxycodone HCl (Roxycodone Tab*) 10 mg PO Q4H PRN PRN Reason: SEVERE PAIN Oxycodone/Acetaminophen (Percocet 5/325 Tab*) 1 tab PO Q3H PRN PRN Reason: PAIN - MODERATE Last Admin: 10/31/16 07:29 Dose: 1 tab Oxycodone/Acetaminophen (Percocet 5/325 Tab*) 2 tab PO Q3H PRN PRN Reason: PAIN - MODERATE Last Admin: 10/30/16 20:53 Dose: 2 tab Pharmacy Profile Note (Coumadin Daily Reminder*) 1 note FOLLOW UP [facility]00 [facility] Last Admin: 10/31/16 17:11 Dose: 1 note Polyethylene Glycol/Electrolytes (Miralax*) 17 gm PO DAILY PRN PRN Reason: Constipation Tramadol HCl (Ultram*) 50 mg PO Q6H PRN PRN Reason: PAIN - MILD TO MODERATE Last Admin: 11/01/16 07:55 Dose: 50 mg Vital Signs 10/31/16 10/31/16 10/31/16 11:22 12:50 14:50 Temperature 97.6 F Pulse Rate 86 Respiratory 15 18 16 Rate Blood Pressure 127/63 (mmHg) O2 Sat by Pulse 94 Oximetry 10/31/16 10/31/16 10/31/16 15:53 15:56 16:00 Temperature 98.1 F Pulse Rate 87 Respiratory 16 Rate Blood Pressure 142/72 (mmHg) O2 Sat by Pulse 95 95 95 Oximetry 10/31/16 10/31/16 10/31/16 19:47 20:00 21:19 Temperature 98.1 F Pulse Rate 91 Respiratory 20 18 18 Rate Blood Pressure 141/66 (mmHg) O2 Sat by Pulse 94 Oximetry 10/31/16 10/31/16 11/01/16 23:19 23:20 00:00 Temperature 98.1 F Pulse Rate 93 Respiratory 16 16 Rate Blood Pressure 132/70 (mmHg) O2 Sat by Pulse 86 94 Oximetry 11/01/16 11/01/16 11/01/16 03:20 07:26 07:55 Temperature 98.1 F 98.2 F Pulse Rate 86 87 Respiratory 18 14 18 Rate Blood Pressure 128/74 121/68 (mmHg) O2 Sat by Pulse 98 94 Oximetry 11/01/16 08:00 Temperature Pulse Rate Respiratory 16 Rate Blood Pressure (mmHg) O2 Sat by Pulse 94 Oximetry Oxygen Devices in Use Now: None Appearance: Well appearing female patient, lying in bed, NAD Eyes: PERRLA Ears/Nose/Mouth/Throat: Mucous Membranes Moist Neck: NL Appearance and Movements; NL JVP Respiratory: Symmetrical Chest Expansion and Respiratory Effort, Clear to Auscultation Cardiovascular: NL Sounds; No Murmurs; No JVD, RRR Abdominal: NL Sounds; No Tenderness; No Distention Extremities: - Neurological: Alert and Oriented x 3 Lines/Tubes/Other Access: Clean, Dry and Intact Peripheral IV Nutrition: Taking PO's Result Diagrams: 11/01/16 05:33 10/30/16 05:56 Assess/Plan/Problems-Billing Assessment: Ms. Childs is a 76 yo female with a PMH of HTN and hypothyroidism who was admitted on 10/29/16 electively for a right total knee arthroplasty. - Patient Problems (1) Status post total right knee replacement Code(s): Z96.651 - PRESENCE OF RIGHT ARTIFICIAL KNEE JOINT Comment: POD #3, management per ortho Pain management PT/OT (2) HTN (hypertension) Code(s): I10 - ESSENTIAL (PRIMARY) HYPERTENSION Comment: Normotensive Continue to hold triamterene/HCTZ postoperatively, possibly resume tomorrow (3) Hypothyroidism Code(s): E03.9 - HYPOTHYROIDISM, UNSPECIFIED Comment: Continue home levothyroxine. (4) DVT prophylaxis Code(s): UNL5659 - Comment: Per ortho SQ Lovenox Status and Disposition: Inpatient admission. Dispo per ortho. Hospitalist co-medical management. Patient requesting [facility].
--- NOTE | 2016-11-01 10:37 | PN ---
Progress Note - Progress Note SOAP: Subjective: Pt is doing well. PT going well. Pain is controlled. Denies CP, SOB, N/T, or F/ C. VSS overnight Objective: PE- 76 y/o F NAD, A&O x3 RLE- dressing changed, inc c/d/i no signs of infection, + DF/PF ankle, calf soft nontender, NVI Vital Signs Temp Pulse Resp BP Pulse Ox 98.2 F 87 16 121/68 94 11/01/16 07:26 11/01/16 07:26 11/01/16 08:00 11/01/16 07:26 11/01/16 08:00 Laboratory Results - last 24 hr 11/01/16 11/01/16 05:33 05:33 Hgb 9.6 L Hct 29 L INR (Anticoag Therapy) 3.04 H Assessment: 76 yo F pod 3 s/p RTKA Plan: WBAT- RLE cont PT hold coumadin tonight cont analgesia d/c plan - snf rehab possibly wednesday
[2016-11-02 05:17] LABS: Hematocrit 27 % (35-47)
[2016-11-02] MEDS: traMADol TAB* 50 MG PO PRN ×2 (05:31→11:51)
[2016-11-02] MEDS: Levothyroxine TAB* 50 MCG TAB PO SCH (05:31)
--- NOTE | 2016-11-02 09:02 | PN ---
Subjective Date of Service: 11/02/16 Interval History: Patient expressed frustration that insurance won't cover rehab stay. She would prefer to go home at this point, rather than incur out of pocket costs. Reports good pain control. She did express concern for her ability to navigate stairs. PT to work with patient this morning. No other acute concerns or complaints. Family History: Unchanged from Admission Social History: Unchanged from Admission Past Medical History: Unchanged from Admission Objective Active Medications: Acetaminophen (Tylenol Tab*) 650 mg PO Q4H PRN PRN Reason: PAIN OR TEMPERATURE Last Admin: 10/31/16 06:09 Dose: 650 mg Bisacodyl (Dulcolax Supp*) 10 mg RI DAILY PRN PRN Reason: constipation Docusate Sodium (Colace Cap*) 100 mg PO BID [facility] Last Admin: 11/01/16 20:20 Dose: 100 mg Lactated Ringer's (Lactated Ringers 1000 Ml Bag*) 1,000 mls @ 100 mls/hr IV PER RATE [facility] Last Admin: 10/30/16 04:37 Dose: 100 mls/hr Lactulose (Lactulose*) 30 ml PO Q6H PRN PRN Reason: constipation Last Admin: 11/01/16 07:56 Dose: 30 ml Levothyroxine Sodium (Synthroid Tab*) 50 mcg PO 0600 [facility] Last Admin: 11/02/16 05:31 Dose: 50 mcg Magnesium Hydroxide (Milk Of Magnesia Liq*) 30 ml PO Q6H PRN PRN Reason: constipation Last Admin: 10/31/16 21:19 Dose: 30 ml Morphine Sulfate (Morphine Inj (Syringe)*) 2 mg IV Q2H PRN PRN Reason: PAIN Ondansetron HCl (Zofran Tab*) 4 mg PO Q6H PRN PRN Reason: NAUSEA Last Admin: 10/31/16 09:31 Dose: 4 mg Oxycodone HCl (Roxycodone Tab*) 10 mg PO Q4H PRN PRN Reason: SEVERE PAIN Oxycodone/Acetaminophen (Percocet 5/325 Tab*) 1 tab PO Q3H PRN PRN Reason: PAIN - MODERATE Last Admin: 10/31/16 07:29 Dose: 1 tab Oxycodone/Acetaminophen (Percocet 5/325 Tab*) 2 tab PO Q3H PRN PRN Reason: PAIN - MODERATE Last Admin: 10/30/16 20:53 Dose: 2 tab Pharmacy Profile Note (Coumadin Daily Reminder*) 1 note FOLLOW UP [address]00 [facility] Last Admin: 11/01/16 16:31 Dose: Not Given Polyethylene Glycol/Electrolytes (Miralax*) 17 gm PO DAILY PRN PRN Reason: Constipation Tramadol HCl (Ultram*) 50 mg PO Q6H PRN PRN Reason: PAIN - MILD TO MODERATE Last Admin: 11/02/16 05:31 Dose: 50 mg Vital Signs 11/01/16 11/01/16 11/01/16 09:55 11:19 11:42 Temperature 98.1 F Pulse Rate 40 67 Respiratory 16 15 Rate Blood Pressure 123/69 (mmHg) O2 Sat by Pulse 89 94 Oximetry 11/01/16 11/01/16 11/01/16 13:48 15:35 16:00 Temperature 97.9 F Pulse Rate 86 Respiratory 20 Rate Blood Pressure 133/77 (mmHg) O2 Sat by Pulse 94 94 94 Oximetry 11/01/16 11/01/16 11/01/16 17:54 19:49 19:54 Temperature 98.0 F Pulse Rate 80 Respiratory 18 16 17 Rate Blood Pressure 131/72 (mmHg) O2 Sat by Pulse 95 Oximetry 11/01/16 11/01/16 11/02/16 20:00 23:35 03:32 Temperature 97.8 F 98.1 F Pulse Rate 84 85 Respiratory 17 16 18 Rate Blood Pressure 99/59 111/57 (mmHg) O2 Sat by Pulse 92 92 Oximetry 11/02/16 11/02/16 05:31 07:36 Temperature 97.8 F Pulse Rate 84 Respiratory 16 14 Rate Blood Pressure 117/62 (mmHg) O2 Sat by Pulse 93 Oximetry Oxygen Devices in Use Now: None Appearance: Well appearing female patient, NAD Eyes: PERRLA Ears/Nose/Mouth/Throat: Mucous Membranes Moist Respiratory: Symmetrical Chest Expansion and Respiratory Effort, Clear to Auscultation Cardiovascular: NL Sounds; No Murmurs; No JVD, RRR Abdominal: NL Sounds; No Tenderness; No Distention Extremities: No Edema, - - right knee dressing c/d/i, nvi, 2+ distal pulses Neurological: Alert and Oriented x 3 Lines/Tubes/Other Access: Clean, Dry and Intact Peripheral IV Nutrition: Taking PO's Result Diagrams: 11/02/16 04:44 10/30/16 05:56 Assess/Plan/Problems-Billing Assessment: Ms. Childs is a 76 yo female with a PMH of HTN and hypothyroidism who was admitted on 10/29/16 electively for a right total knee arthroplasty. - Patient Problems (1) Status post total right knee replacement Code(s): Z96.651 - PRESENCE OF RIGHT ARTIFICIAL KNEE JOINT Comment: POD #4, management per ortho Pain management PT/OT (2) HTN (hypertension) Code(s): I10 - ESSENTIAL (PRIMARY) HYPERTENSION Comment: Normotensive May resume triamterene/HCTZ at discharge (3) Hypothyroidism Code(s): E03.9 - HYPOTHYROIDISM, UNSPECIFIED Comment: Continue home levothyroxine. (4) DVT prophylaxis Code(s): GTF3085 - Comment: Per ortho SQ Lovenox Status and Disposition: Inpatient admission. Dispo per ortho. Hospitalist co-medical management. Patient requesting [facility] but not covered by insurance. Likely d/c to home.
[2016-11-02] MEDS: Docusate CAP* 100 MG PO SCH (09:32)
[2016-11-02 11:26] VITALS: BP 129/63
--- NOTE | 2016-11-02 11:56 | PN ---
Progress Note - Progress Note SOAP: Subjective: POD #4 Right TKA. States that she is doing ok, having pain but tolerable with medication. Plans to go home with [facility] and home PT. Denies CP/SOB or calf pain Objective: Vital Signs: Temp Pulse Resp BP Pulse Ox 97.9 F 81 16 129/63 100 11/02/16 11:13 11/02/16 11:13 11/02/16 11:51 11/02/16 11:13 11/02/16 11:13 Gen: A & Ox3, NAD at rest sitting in chair RLE: Dressing C/D/I, +f/e at ankle, MTPs. N/V intact Labs: Laboratory Results - last 24 hr 11/02/17 11/02/16 04:44 04:44 Hgb 9.0 L Hct 27 L INR (Anticoag Therapy) 2.33 H Assessment: POD #4 Right TKA Plan: INR 2.33 today, continue 2mg qHS until redraw 11/05/16 Home PT/VNS to see pt F/u with Dr. France Wednesday
--- NOTE | 2016-11-03 03:48 | DS ---
DISCHARGE SUMMARY: DATE OF ADMISSION: 10/29/16 DATE OF DISCHARGE: 11/02/16 PROVIDER: Rubina France MD (DICTATED BY JUDD WILLIS) ADMITTING DIAGNOSIS: Severe end-stage osteoarthritis of the right knee. DISCHARGE DIAGNOSES: Severe end-stage osteoarthritis of the right knee, status post right total knee arthroplasty. SECONDARY DIAGNOSIS: Hypothyroidism. HISTORY OF PRESENT ILLNESS: Ms. Childs is a 76-year-old female who has had ongoing complaints of right knee pain for several years secondary to advanced osteoarthritis. She failed conservative management as an outpatient and elected to proceed with a right total knee arthroplasty. HOSPITAL COURSE: On 10/29/16, the patient was admitted to [facility] and underwent a successful right total knee arthroplasty by Dr. France. She recovered briefly in the post-anesthesia care unit and then transferred to the short-stay surgical unit in stable condition. She was consulted on by the hospitalist service for comanagement of medical problem. Postop day 1, the patient's pain was well controlled with oral and IV pain medication. She was able to ambulate a short distance with the use of a rolling walker and assistance with physical therapy. H and H was 10.9 and 33. INR was 0.91 with 6 mg of Coumadin previously. Postop day 2, the patient's pain was well controlled with oral pain medication. She had continued to have some mild acute blood loss anemia with an H and H of 9.6 and 29. INR was 1.87 with 8 mg of Coumadin previously. She was again able to ambulate, weightbearing as tolerated on the right leg with a rolling walker and assistance with physical therapy. Postop day 3, the patient's H and H was stable at 9.6 and 29. INR 3.04 with 4 mg of Coumadin previously. By postop day 4, the patient decided that she would not like to go to the rehab facility as she could not afford the co-pay and would prefer to try to go home with visiting nurse, this was set up for her. H and H was stable at 9.0 and 27. INR was 2.33 after holding Coumadin previously. Pain was well controlled with tramadol, and she would like to be discharged home on this. DISCHARGE INSTRUCTIONS: The patient is understanding that she may shower normally, but is not to submerge the wound in a bathtub, hot tub, or swimming pool. She will apply dry dressing as needed. Visit nurse service will come for home INR draws on Mondays and . She was advised to continue 2 mg of Coumadin until the next draw on 11/05/16. She will be weightbearing as tolerated with a rolling walker. She will also have home physical therapy services. She is understanding to go directly to the emergency room with any chest pain, shortness of breath, fever greater than 101.5, or calf pain and swelling. She will call the office at [phone] with any other questions or concerns. She will follow up with Dr. France 10 to 14 days postop. DISCHARGE MEDICATIONS: The patient will take: 1. Tramadol 50 mg p.o. q.4 to 6 hours p.r.n. pain. 2. Coumadin 2 mg p.o. at 5 p.m. daily. 3. Colace 100 mg p.o. b.i.d. p.r.n. constipation. She will resume her home medications of: 1. Turmeric supplement 1 tab p.o. daily. 2. Triamterene/HCTZ 37.5/25 mg 1 cap p.o. daily. 3. Synthroid 50 mcg p.o. daily. 4. Multivitamin 1 p.o. daily. 5. Folic acid 1 tab p.o. daily. 6. Evista 60 mg p.o. daily. 7. Biotin 1 p.o. daily. 8. Calcium plus vitamin D 500/400 mg/units 1 p.o. daily. 9. AREDS supplement 2 caps p.o. daily. All the patient's questions were answered. She is understanding of the discharge plan. JUDD WILLIS [id number]/[facility] #: [id number] ADAL
== END 2016-11-02 14:00 | disposition home health service (06) | DRG 470 ==
LOC: AA 10:26 → SSU 16:03
PROVIDERS: ADMIT Orthopaedic Surgery Adult Reconstructive Orthopaedic Surgery; ATTEND Orthopaedic Surgery Adult Reconstructive Orthopaedic Surgery
PROC: 0SRC0J9 Replacement of Right Knee Joint with Synthetic Substitute, Cemented, Open Approach (ICD-10-PCS; principal; 2016-10-29 13:00)
DX: M17.11 Unilateral primary osteoarthritis, right knee (principal); I95.9 Hypotension, unspecified; D62 Acute posthemorrhagic anemia; I10 Essential (primary) hypertension; E03.9 Hypothyroidism, unspecified; M21.061 Valgus deformity, not elsewhere classified, right knee; Q72.891 Other reduction defects of right lower limb; E78.5 Hyperlipidemia, unspecified; M81.0 Age-related osteoporosis without current pathological fracture; Z98.42 Cataract extraction status, left eye; Z98.41 Cataract extraction status, right eye; Z80.0 Family history of malignant neoplasm of digestive organs; Z79.01 Long term (current) use of anticoagulants; Z98.51 Tubal ligation status; R11.0 Nausea; T39.1X5A Adverse effect of 4-Aminophenol derivatives, initial encounter; I83.90 Asymptomatic varicose veins of unspecified lower extremity; M85.80 Other specified disorders of bone density and structure, unspecified site
CPT/HCPCS: 36415; 80048; 85014; 85018; 85610; 88305; 88311; 94760; A9270-GY; C1776; J0690; J0780; J1100; J1170; J1240; J1650; J2250; J2405; J2704; J3010

== ENCOUNTER 2018-05-13 15:59 | Emergency (ER) | payer MEDICARE ==
[2018-05-13 16:46] LABS: ABS Basophils 0.1 10^3/ul (0-0.2); ABS Eosinophils 0 10^3/ul (0-0.6); ABS Lymphocytes 1.2 10^3/ul (1.0-4.8); ABS Monocytes 0.5 10^3/ul (0-0.8); ABS Neutrophils 6.2 10^3/ul (1.5-7.7); ABS Nucleated RBC 0 10^3/ul; Eosinophil % 0.6 % (0-6); Hematocrit 40 % (35-47); Hemoglobin 13.2 g/dl (12.0-16.0); Lymphocyte % 14.7 % (25-47); Mean Corpuscular HGB Conc 33 g/dl (31-36); Mean Corpuscular Hemoglobin 32 pg (27-31); Mean Corpuscular Volume 96 fL (80-97); Mean Platelet Volume 9.4 fL (7.4-10.4); Nucleated Red Blood Cells % 0; Platelet Count 250 10^3/ul (150-450); Red Blood Count 4.15 10^6/ul (4.00-5.40); Red Cell Distribution Width 13 % (10.5-15); White Blood Count 7.9 10^3/ul (3.5-10.8)
[2018-05-13 16:56] LABS: INR 0.89 (0.77-1.02)
--- OUTSIDE RECORDS SUMMARY | 2018-05-13 17:02 | XMS REPORT ---
:1940 External Reference #:[id number] Author Organization [employer] Address [address] [place] [address] [place] [address] Phone [phone] Care Team Providers Name Role Phone Humberto Rubio MD Primary Care Physician Unavailable Payers Type Date Identification Numbers Payment Provider Subscriber Health Maintenance Policy Number: [employer] Mary Lou Martinez (HMO) [id number] Solutions Amadeo PayID: [id number] [address] [address] [place] [address] Commercial Expires: [facility] Number[facility] Mary Lou Martin 10/01/2016 [id number] pr Amadeo PayID: [id number] [address] [address] Attn: [place] [address] Medigap Part B Expires: 10/01/2016 Policy Number: [facility] Mary Lou Martin [id number] Care (Oon) Amadeo PayID: [id number] [address] [place] [address] Problems Date Description Provider Status Onset: 10/02/2016 Localized, primary osteoarthritis Rubina France M.D. Active Social History Type Date Description Comments Lives With Alone Occupation Clergy ETOH Use Currently consumes alcohol 2-3 a day Smoking Patient is a former smoker quit 50 yrs ago Exercise Type/Frequency Exercises sporadically Allergies, Adverse Reactions, Alerts Date Description Reaction Status Severity Comments 10/02/2016 NKDA active Medications Medication Date Status Form Strength Qnty SIG Indications Ordering Provider Tizanidine HCL 12/11/ Active Capsules 2mg 90caps 1 cap by Rubina 2017 mouth Román, three M.D. times a day as needed for muscle spasm Meloxicam 12/02/ Active Tablets 15mg 30tabs 1 tab by Rubina 2016 mouth Román, every day M.D. Gabapentin 11/06/ Active Capsules 300mg 30caps 1 tab by M25.561 Rubina 2016 mouth Román, before M.D. bed Coumadin 10/26/ Active Tablets 2mg 90tabs take 1-3 Rubina 2017 tabs by Román, mouth at M.D. 5 at night as directed Oxycodone-Acetami 10/26/ Active Tablets 5-325mg 90tabs 1-2 tabs Rubina nophen 2017 by mouth Román, every 4- M.D. 6 hours as needed for pain Colace 10/26/ Active Capsules 100mg 90caps 1 tab by Rubina 2016 mouth 2-3 Román, times a M.D. day as needed Tramadol HCL 10/02/ Active Tablets 50mg 60tabs 1 tablet M25.561 Rubina2016 by mouth Román, every 6 M.D. hours as needed pain Levothyroxine / Active Tablets 50mcg Unknown Sodium 0000 Raloxifene HCL / Active Tablets 60mg Unknown 0000 Triamterene/[place] / Active Capsules 37.5-25mg Unknown chlorothiazide 0000 Cyclobenzaprine 12/03/ Hx Tablets 5mg 90tabs 1/2-1 Rubina HCL 2017 - tabs as Román, 12/11/ needed M.D. 2017 Cyclobenzaprine 11/06/ Hx Tablets 10mg 60tabs take 1 M25.561 Rubina HCL 2017 - tab by Román, 12/03/ mouth 2 M.D. 2017 times a day as needed Vital Signs Date Vital Result Comment 05/13/2018 Heart Rate 72 /min BP Systolic 126 mmHg BP Diastolic 82 mmHg Respiratory Rate 16 /min Pain Level 5 06/04/2017 Height 62 inches 5'2" Weight 139.00 lb BP Systolic 124 mmHg BP Diastolic 80 mmHg Respiratory Rate 18 /min Pain Level 2 BMI (Body Mass Index) 25.4 kg/m2 01/25/2017 Height 62 inches 5'2" Weight 134.00 lb Heart Rate 77 /min BP Systolic 138 mmHg BP Diastolic 81 mmHg Body Temperature 97.0 F BMI (Body Mass Index) 24.5 kg/m2 12/18/2016 Height 62 inches 5'2" Weight 141.00 lb Heart Rate 100 /min BP Systolic 126 mmHg BP Diastolic 70 mmHg Respiratory Rate 17 /min Body Temperature 98.5 F Pain Level 0 BMI (Body Mass Index) 25.8 kg/m2 12/02/2016 Height 62 inches 5'2" Weight 135.00 lb Heart Rate 110 /min BP Systolic 132 mmHg BP Diastolic 82 mmHg Body Temperature 97.8 F Pain Level 4 BMI (Body Mass Index) 24.7 kg/m2 11/13/2016 Height 62 inches 5'2" Weight 146.00 lb BP Systolic 118 mmHg BP Diastolic 80 mmHg Body Temperature 97.3 F Pain Level 5 BMI (Body Mass Index) 26.7 kg/m2 11/06/2016 Height 62 inches 5'2" Weight 148.00 lb Heart Rate 66 /min BP Systolic 106 mmHg BP Diastolic 70 mmHg Respiratory Rate 14 /min Pain Level 5 BMI (Body Mass Index) 27.1 kg/m2 10/26/2016 Height 62 inches 5'2" Weight 148.00 lb Heart Rate 85 /min BP Systolic 140 mmHg BP Diastolic 90 mmHg Body Temperature 97.9 F BMI (Body Mass Index) 27.1 kg/m2 10/02/2016 Height 62 inches 5'2" Weight 148.00 lb Heart Rate 64 /min BP Systolic 142 mmHg BP Diastolic 90 mmHg Respiratory Rate 16 /min Body Temperature 97.5 F Pain Level 7 BMI (Body Mass Index) 27.1 kg/m2 Results Test Date Test Result H/L Range Note CBC No Diff 10/26/2016 White Blood Count 7.6 10^3/uL 3.5-10.8 1 Red Blood Count 4.28 10^6/uL 4.0-5.4 1 Hemoglobin 13.8 g/dL 12.0-16.0 1 Hematocrit 41 % 35-47 1 Mean Corpuscular Volume 97 fL 80-97 1 Mean Corpuscular Hemoglobin 32 pg High 27-31 1 Mean Corpuscular HGB Conc 33 g/dL 31-36 1 Red Cell Distribution Width 13 % 10.5-15 1 Platelet Count 190 10^3/uL 150-450 1 Mean Platelet Volume 10 um3 7.4-10.4 1 Inr/Protime 10/26/2016 Inr 0.85 Low 0.89-1.11 1 Laboratory test finding 10/26/2016 Partial Thrombo 30.8 seconds 26.0- 36.3 1, 2 Time PTT Urinalysis Profile 10/26/2016 Urine Color Yellow 1 Urine Appearance Clear 1 Urine Specific [place] 1.018 1.010-1.030 1 Urine pH 7.0 5-9 1 Urine Urobilinogen Negative Negative 1 Urine Ketones Trace Negative 1 Urine Protein Negative Negative 1 Urine Leukocytes Negative Negative 1 Urine Blood Negative Negative 1 * * Negative 1, 3 Urine Nitrite Negative Negative 1 Urine Bilirubin Negative Negative 1 Urine Glucose Negative Negative 1 Comp Metabolic Panel 10/26/2016 Sodium 139 mmol/L 133-145 1 Potassium 3.8 mmol/L 3.5-5.0 1 Chloride 100 mmol/L Low 101-111 1 Co2 Carbon Dioxide 30 mmol/L 22-32 1 Anion Gap 9 mmol/L 2-11 1 Glucose 98 mg/dL 70-100 1 Blood Urea Nitrogen 23 mg/dL 6-24 1 Creatinine 1.03 mg/dL High 0.51-0.95 1 BUN/Creatinine Ratio 22.3 High 8-20 1 Calcium 9.8 mg/dL 8.6-10.3 1 Total Protein 7.0 g/dL 6.4-8.9 1 Albumin 4.4 g/dL 3.2-5.2 1 Globulin 2.6 g/dL 2-4 1 Albumin/Globulin Ratio 1.7 1-3 1 Total Bilirubin 0.60 mg/dL 0.2-1.0 1 Alkaline Phosphatase 62 U/L 34-104 1 Alt 12 U/L 7-52 1 Ast 22 U/L 13-39 1 Egfr Non- 52.0 >60 1 Egfr 66.8 >60 1, 4 Type & Screen 10/26/2016 Patient Blood Type O Negative 1 Antibody Screen NEGATIVE 1 Urine Culture And Sensitivities 10/26/2016 Urine Culture SEE RESULT BELOW 1, 5 1 SD [id number] 2 SD [id number] 3 *Ascorbic acid is present which may interfere with detection of blood. 4 Because ethnic data is not always readily available, this report includes an eGFR for both -Americans and non- Americans. The National Kidney Disease Education Program (NKDEP) does not endorse the use of the MDRD equation for patients that are not between the ages of 18 and 70, are , have extremes of body size, muscle mass, or nutritional status, or are non- or non-. According to the National Kidney Foundation, irrespective of diagnosis, the stage of the disease is based on the level of kidney function: Stage Description GFR(mL/min/1.73 m(2)) 1 Kidney damage with normal or decreased GFR 90 2 Kidney damage with mild decrease in GFR 60-89 3 Moderate decrease in GFR 30-59 4 Severe decrease in GFR 15-29 5 Kidney failure <15 (or dialysis) 5 SEE RESULT BELOW Name: MARY LOU CHILDS : [address]: Rubina France MD Acct: [id number] Unit: [id number] AGE: 76 Location: [facility] Re10/26/16 SEX: F Status: REG REF SPEC: [id number] SERA: 10/26/16-[address] [facility] [address]: Rubina France MD REQ: [id number] RECD: 10/26/16 STATUS: COMP _ SOURCE: URINE SPDESC: ORDERED: Urine Culture COMMENTS: SD [id number] QUERIES: Urine Source: Clean Catch Procedure Result Reported Site Urine Culture Final 10/27/16- 1316 ML No Growth (<1,000 CFU/mL) * ML - MAIN LAB ([facility]) . END OF REPORT * ML=Testing performed at Main Lab DEPARTMENT OF PATHOLOGY, [address] [place] [address] Robin Escobedo M.D. Director [facility] # [id number] Procedures Date CPT Code Description Status 05/13/2018 17964 Inject/Drain Joint/Bursa Major W/O US Completed 10/29/2016 13415 TKR Total Knee Replacement Completed 10/29/2016 72984 TKR Total Knee Replacement Completed 06/04/2006 31422 EKG, Interpretation Only Completed Encounters Type Date Location Provider CPT E/M Dx Office Visit 06/04/2017 [facility] Rubina France M.D. 77821 Z96.651 9:15a Of Gino M25.561 Office Visit 11/02/2016 1:18p [facility],[place] [address] E03.9 Hospitalists Z96.659 I10 Office Visit 11/01/2016 1:17p [facility] [place] [address] E03.9 Hospitalists Z96.659 I10 Office Visit 10/31/2016 1:17p 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 15044 E03.9 Hospitalists Z96.659 I10 Office Visit 10/02/2016 3:00p [facility] Rubina France M.D. 74658 M25.561 [facility] M25.562 M17.0 M25.461 M21.062 M21.061 Plan of Care Future Appointment(s):06/10/2018 8:45 am - Rubina France M.D. at [facility]05/13/2018 - Rubina France M.D.M25.561 Pain in right kneeNew Xrays:Knee 3 Views RTNew Therapy:Physical TherapyFollow up:Follow up: 4 ezqagY98.651 Presence of right artificial knee txmhmY23.562 Pain in left kneeM25.462 Effusion, left kneeM17.12 Unilateral primary osteoarthritis, left knee
[2018-05-13 18:03] LABS: EGFR Non-African American 41.7 (>60)
--- NOTE | 2018-05-13 18:46 | ED ---
HPI Chest Pain - HPI Summary HPI Summary: A 78 y/o female presents to the ED c/o CP since 05/09/2018. She rates her pain as 3/10. She states that she was flying back from [place] and later her pain started. She also c/o SOB stating that it "kills me to breathe", knee and feet pain, high blood pressure and dementia. She states that her CP worsens when taking a deep breath. She is a former smoker but quit 40 years ago. She takes medicine for hypothyroidism. She denies a Hx of HTN, HLD, DM or AK. - History of Current Complaint Chief Complaint: EDChestWallPain Time Seen by Provider: 05/13/18 17:21 Hx Obtained From: Patient Onset/Duration: Started Days Ago, Still Present Timing: Constant Initial Severity: Moderate Current Severity: Moderate Pain Intensity: 3 Pain Scale Used: 0-10 Numeric Chest Pain Radiates To:: Back - Additional Pertinent History Primary Care Physician: ARUN - Allergy/Home Medications Allergies/Adverse Reactions: Allergies Allergy/AdvReac Type Severity Reaction Status Date / Time No Known Allergies Allergy Verified 10/29/16 10:49 PMH/Surg Hx/FS Hx/Imm Hx Endocrine/Hematology History: Reports: Hx Thyroid Disease Denies: Hx Diabetes Cardiovascular History: Reports: Hx Peripheral Vascular Disease - HX VERICOSE VEINS Denies: Hx Hypertension, Hx Pacemaker/ICD, Other Cardiovascular Problems/ Disorders Respiratory History: Reports: Hx Pulmonary Edema GI History: Denies: Other GI Disorders Musculoskeletal History: Reports: Hx Arthritis - KNEES, BONE ON BONE, Hx Osteoporosis Denies: Other Musculoskeletal History Sensory History: Reports: Hx Cataracts - BILAT Denies: Hx Contacts or Glasses, Hx Hearing Aid Opthamlomology History: Reports: Hx Cataracts - BILAT Denies: Hx Contacts or Glasses Psychiatric History: Denies: Hx Panic Disorder - Cancer History Hx Chemotherapy: No Hx Radiation Therapy: No - Surgical History Surgery Procedure, Year, and Place: R LEG FX MANY YEARS. HERNIA MANY YRS AGO. OOPHERECTOMY, FALLOPIAN TUBE REMOVAL. TONSILLECTOMY A CHILD. RIGHT AND LEFT LEG VEIN SURGERY. CATARACT Hx Anesthesia Reactions: No - Immunization History Date of Influenza Vaccine: 2018 Immunizations Up to Date: Yes Infectious Disease History: No Infectious Disease History: Denies: Traveled Outside the [place] in Last 30 Days - Family History Known Family History: Negative: Blood Disorder - Social History Alcohol Use: Daily Alcohol Amount: 2 glasses white wine per day Substance Use Type: Reports: None Smoking Status (MU): Former Smoker Type: Cigarettes Amount Used/How Often: PACK/DAY Length of Time of Smoking/Using Tobacco: 10 YRS Have You Smoked in the Last Year: No Review of Systems Positive: Chest Pain Positive: Shortness Of Breath Positive: Myalgia - knee and feet pain Neurological: Other - Positive: dementia All Other Systems Reviewed And Are Negative: Yes Physical Exam - Summary Physical Exam Summary: VITAL SIGNS: Reviewed. GENERAL: Patient is a well-developed and nourished FEMALE who is lying comfortable in the stretcher. Patient is not in any acute respiratory distress. HEAD AND FACE: No signs of trauma. No ecchymosis, hematomas or skull depressions. No sinus tenderness. EYES: PERRLA, EOMI x 2, No injected conjunctiva, no nystagmus. EARS: Hearing grossly intact. Ear canals and tympanic membranes are within normal limits. MOUTH: Oropharynx within normal limits. NECK: Supple, trachea is midline, no adenopathy, no JVD, no carotid bruit, no c- spine tenderness, neck with full ROM. CHEST: Symmetric, no tenderness at palpation LUNGS: Clear to auscultation bilaterally. No wheezing or crackles. CVS: Regular rate and rhythm, S1 and S2 present, no murmurs or gallops appreciated. ABDOMEN: Soft, non-tender. No signs of distention. No rebound no guarding, and no masses palpated. Bowel sounds are normal. EXTREMITIES: FROM in all major joints, no edema, no cyanosis or clubbing. NEURO: Alert and oriented x 3. No acute neurological deficits. Speech is normal and follows commands. SKIN: Dry and warm Triage Information Reviewed: Yes Vital Signs On Initial Exam: Initial Vitals Temp Pulse Resp BP Pulse Ox 98.3 F 60 20 159/90 100 05/13/18 16:10 05/13/18 16:10 05/13/18 16:10 05/13/18 16:10 05/13/18 16:10 Vital Signs Reviewed: Yes Diagnostics - Vital Signs Vital Signs Temp Pulse Resp BP Pulse Ox 05/13/18 16:10 98.3 F 60 20 159/90 100 - Laboratory Lab Results: Lab Results 11/03/2205/13/18 05/13/18 Range/Units 16:37 16:37 16:37 WBC 7.9 (3.5-10.8) 10^3/ul RBC 4.15 (4.00-5.40) 10^6/ul Hgb 13.2 (12.0-16.0) g/dl Hct 40 (35-47) % MCV 96 (80-97) fL MCH 32 H (27-31) pg MCHC 33 (31-36) g/dl RDW 13 (10.5-15) % Plt Count 250 (150-450) 10^3/ul MPV 9.4 (7.4-10.4) fL Neut % (Auto) 77.9 (38-83) % Lymph % (Auto) 14.7 L (25-47) % Harper % (Auto) 6.0 (0-7) % Eos % (Auto) 0.6 (0-6) % Baso % (Auto) 0.8 (0-2) % Absolute Neuts (auto) 6.2 (1.5-7.7) 10^3/ul Absolute Lymphs (auto) 1.2 (1.0-4.8) 10^3/ul Absolute Monos (auto) 0.5 (0-0.8) 10^3/ul Absolute Eos (auto) 0 (0-0.6) 10^3/ul Absolute Basos (auto) 0.1 (0-0.2) 10^3/ul Absolute Nucleated RBC 0 10^3/ul Nucleated RBC % 0 INR (Anticoag Therapy) 0.89 (0.77-1.02) APTT 31.3 (26.0-36.3) seconds Sodium 141 (135-145) mmol/L Potassium 3.7 (3.5-5.0) mmol/L Chloride 103 (101-111) mmol/L Carbon Dioxide 27 (22-32) mmol/L Anion Gap 11 (2-11) mmol/L BUN 22 (6-24) mg/dL Creatinine 1.24 H (0.51-0.95) mg/dL Est GFR ( Amer) 50.5 (>60) Est GFR (Non-Af Amer) 41.7 (>60) BUN/Creatinine Ratio 17.7 (8-20) Glucose 115 H (70-100) mg/dL Lactic Acid (0.5-2.0) mmol/L Calcium 9.4 (8.6-10.3) mg/dL Magnesium 2.0 (1.9-2.7) mg/dL Total Bilirubin 0.50 (0.2-1.0) mg/dL AST 24 (13-39) U/L ALT 12 (7-52) U/L Alkaline Phosphatase 65 (34-104) U/L Total Creatine Kinase 77 (10-223) U/L CK-MB (CK-2) 1.4 (0.6-6.3) ng/mL Troponin I 0.00 (<0.04) ng/mL B-Natriuretic Peptide (<=100) pg/mL Total Protein 7.2 (6.4-8.9) g/dL Albumin 4.3 (3.2-5.2) g/dL Globulin 2.9 (2-4) g/dL Albumin/Globulin Ratio 1.5 (1-3) TSH 4.75 (0.34-5.60) mcIU/mL 05/13/18 05/13/18 05/13/18 Range/Units 16:37 16:37 16:37 WBC (3.5-10.8) 10^3/ul RBC (4.00-5.40) 10^6/ul Hgb (12.0-16.0) g/dl Hct (35-47) % MCV (80-97) fL MCH (27-31) pg MCHC (31-36) g/dl RDW (10.5-15) % Plt Count (150-450) 10^3/ul MPV (7.4-10.4) fL Neut % (Auto) (38-83) % Lymph % (Auto) (25-47) % Harper % (Auto) (0-7) % Eos % (Auto) (0-6) % Baso % (Auto) (0-2) % Absolute Neuts (auto) (1.5-7.7) 10^3/ul Absolute Lymphs (auto) (1.0-4.8) 10^3/ul Absolute Monos (auto) (0-0.8) 10^3/ul Absolute Eos (auto) (0-0.6) 10^3/ul Absolute Basos (auto) (0-0.2) 10^3/ul Absolute Nucleated RBC 10^3/ul Nucleated RBC % INR (Anticoag Therapy) (0.77-1.02) APTT (26.0-36.3) seconds Sodium (135-145) mmol/L Potassium (3.5-5.0) mmol/L Chloride (101-111) mmol/L Carbon Dioxide (22-32) mmol/L Anion Gap (2-11) mmol/L BUN (6-24) mg/dL Creatinine (0.51-0.95) mg/dL Est GFR ( Amer) (>60) Est GFR (Non-Af Amer) (>60) BUN/Creatinine Ratio (8-20) Glucose (70-100) mg/dL Lactic Acid 1.6 (0.5-2.0) mmol/L Calcium (8.6-10.3) mg/dL Magnesium (1.9-2.7) mg/dL Total Bilirubin (0.2-1.0) mg/dL AST (13-39) U/L ALT (7-52) U/L Alkaline Phosphatase (34-104) U/L Total Creatine Kinase (10-223) U/L CK-MB (CK-2) (0.6-6.3) ng/mL Troponin I Cancelled (<0.04) ng/mL B-Natriuretic Peptide 36 (<=100) pg/mL Total Protein (6.4-8.9) g/dL Albumin (3.2-5.2) g/dL Globulin (2-4) g/dL Albumin/Globulin Ratio (1-3) TSH (0.34-5.60) mcIU/mL Result Diagrams: 05/13/18 16:37 05/13/18 16:37 Lab Statement: Any lab studies that have been ordered have been reviewed, and results considered in the medical decision making process. - Radiology CXR Radiology Interpretation Completed By: Radiologist - #. Stigmata of potential obstructive lung disease. No acute pulmonary or cardiac process evident. The ED physician has reviewed this report. - EKG 16:25 Cardiac Rate: NL - 86 bpm EKG Rhythm: Sinus Rhythm Summary of EKG Findings: no ST elevation Re-Evaluation - Re-Evaluation First Eval Re-Evaluation Time: 20:20 Change: Unchanged Comment: Spoke with patient about results and discharge. Chest Pain Course/Dx - Course Assessment/Plan: A 78 y/o female presents to the ED c/o CP since 05/09/2018. She rates her pain as 3/10. She states that she was flying back from [place] and later her pain started. She also c/o SOB stating that it "kills me to breathe", knee and feet pain, high blood pressure and dementia. She states that her CP worsens when taking a deep breath. She is a former smoker but quit 40 years ago. She takes medicine for hypothyroidism. She denies a Hx of HTN, HLD, DM or AK. Blood work without any significant abnormality except for a slight increase in creatinine 1.24, glucose 1:15. 2 troponins apart as 0.01.. D- dimer is less than 200. Chest x-ray impression, stigmata of potential obstructive lung disease. No acute pulmonary or cardiac process evident. EKG shows no ST elevations. In the ED course the patient was given IV fluids and [place] for pain. After these medications the patients symptoms have significantly improved therefore the patient was discharged home with follow-up with primary care physician. I discussed all the findings and test results with the patient. Patient was instructed to return to the emergency room immediately if any of the symptoms return or worsens. Plan of care was discussed with the patient and understands and agrees. All questions were answered at patient satisfaction. There were no further complaints or concerns. Lung exam before discharge: CTA B/L. Good air exchange. No wheezing or crackles heard. CVS: S1 and S2 present. No murmurs appreciated. Patient is alert and oriented x 3. Patient is hemodynamically stable. Patient will be discharged home with follow up PCP in the next 2-3 days - Chest Pain Differential Diagnosis/HQI/PQRI: Acute AK, ACS, Angina, CHF, Chest Wall, GI Disease, Lower Respiratory Infection, Pulmonary Embolism - Diagnoses Provider Diagnoses: Chest pain, atypical Discharge - Sign-Out/Discharge Documenting (check all that apply): Patient Departure - Discharge Plan Condition: Stable Disposition: HOME Patient Education Materials: Chest Pain (ED) Referrals: Humberto Rubio MD [Primary Care Provider] - 3 Days Additional Instructions: Return to the ED if you experience any worsening or new symptoms. - Billing Disposition and Condition Condition: STABLE Disposition: Home - Attestation Statements Document Initiated by Scribe: Yes Documenting Scribe: Andrea Burr Provider For Whom Scribe is Documenting (Include Credential): Arnoldo Abel MD Scribe Attestation: IAndrea, scribed for Arnoldo Abel MD on 05/14/18 at 0841. Scribe Documentation Reviewed: Yes Provider Attestation: The documentation as recorded by the Andrea anderson accurately reflects the service I personally performed and the decisions made by me, Arnoldo Abel MD Attestations User Type: Provider with Scribe Provider Attestation: The documentation recorded by the scribe accurately reflects the service I personally performed and the decisions made by me.
[2018-05-13] MEDS ORDERED: HYDROcodone/ACETAMIN 5-325 MG* 1 TAB PO ONE (19:36)
[2018-05-13 21:09] VITALS: BP 111/74
== END 2018-05-13 21:09 | disposition home or self-care (01) ==
LOC: ED 15:59
DX: R07.89 Other chest pain (principal); R06.02 Shortness of breath; M79.673 Pain in unspecified foot; Z87.891 Personal history of nicotine dependence
CPT/HCPCS: 36415; 71045; 80053; 82550; 82553; 83605; 83735; 83880; 84443; 84484; 85025; 85379; 85610; 85730; 93005; 99282